=== PATIENT | male | born 1935 | race Caucasian/White ===

== ENCOUNTER → 2018-12-25 10:48 | Emergency (ER) | payer OTHER ==
[~2018-12-25] VITALS: Ht 172.7 cm; Wt 99.8 kg
[~2018-12-25 10:48] MED LIST: HYDROcodone-ACET 10/325MG TAB PO ONE; NEOMYCIN-BACITRACIN-POLYM 15GM TOP OINT TOP SCH; NEOMYCIN-BACITRACIN-POLYM UNITDOSE PKG TOP OINT TOP ONE; TETANUS-DIPTH-ACEL PERTUSSIS 0.5ML SYRG IM ONE; cefTRIAXone 1GM/50ML D5W 50 ML IV ONE
[2018-12-25 12:00] VITALS: BP 154/60
== END | disposition home or self-care (01) ==
LOC: ER 10:48 → EDBD 10:48
DX: S02.2XXA Fracture of nasal bones, initial encounter for closed fracture (principal); J44.9 Chronic obstructive pulmonary disease, unspecified; E11.9 Type 2 diabetes mellitus without complications; I10 Essential (primary) hypertension; Z95.1 Presence of aortocoronary bypass graft; W01.198A Fall on same level from slipping, tripping and stumbling with subsequent striking against other object, initial encounter; Y93.89 Activity, other specified; Y99.8 Other external cause status; Y92.89 Other specified places as the place of occurrence of the external cause
CPT/HCPCS: 70450; 70486; 90471; 90715; 93005; 96365; 99284; J0696

== ENCOUNTER 2020-10-04 07:18 | Emergency (ER) | payer OTHER ==
[~2020-10-04] VITALS: Ht 167.6 cm; Wt 95.3 kg
[2020-10-04 08:19] LABS: Basophils # (auto) 0 10 ^3/uL (0-0.2); Eosinophils # (auto) 0 10 ^3/uL (0-0.8); Lymphocytes % (auto) 24.2 % (10.0-50.0); Monocytes # (auto) 0.5 10 ^3/uL (0-1.3); White Blood Cell 4.2 10^3/uL (4.4-10.8)
[2020-10-04 08:23] LABS: Basophils % (auto) 0.9 % (0.0-2.0); Eosinophils % (auto) 0.3 % (0.0-7.0); Hematocrit 22.2 % (41.0-53.0); Hemoglobin 7.1 g/dL (13.5-17.5); Mean Corpuscular Hemoglobin 29.7 pg (28.0-32.0); Mean Corpuscular Hgb Conc. 32.2 g/dL (32.0-36.0); Mean Corpuscular Volume 92.3 fL (80.0-100.0); Monocytes % (auto) 11.3 % (0.0-12.0); Neutrophils # (auto) 2.6 10 ^3/uL (1.6-8.6); Neutrophils % (auto) 63.3 % (37.0-80.0); Nucleated Red Blood Cells % 0.2 %
[2020-10-04 08:24] LABS: Red Cell Distribution Width 21.2 % (11.8-14.3)
[2020-10-04 08:29] LABS: INR 1.89 (0.9-1.15)
[2020-10-04 08:35] LABS: Albumin 2.7 g/dL (3.4-5.0); Calcium 7.8 mg/dL (8.5-10.1); Potassium 4.3 mmol/L (3.5-5.1)
[2020-10-04 08:38] LABS: BUN/Creatinine Ratio 24.1; Total Protein 7.9 g/dL (6.4-8.2)
[2020-10-04 09:26] LABS: Urine Bacteria NONE SEEN /hpf (None Seen); Urine Blood 3+ /uL (Negative); Urine WBC 1122 /hpf (0 - 3)
[2020-10-04 09:35] LABS: Urine Specific Gravity 1.021 (1.001-1.035)
[2020-10-04] MEDS ORDERED: SODIUM CHLORIDE 0.9% 500 ML IVB ONE (10:30)
[2020-10-04] MEDS ORDERED: SODIUM CHLORIDE 0.9% 1,000 ML IV ONE (10:30)
[2020-10-04 10:48] LABS: Magnesium 2.2 mg/dL (1.6-2.6)
[2020-10-04] MEDS ORDERED: cefTRIAXone 1GM/50ML D5W 50 ML IV ONE (14:00)
[2020-10-04] MEDS ORDERED: FUROSEMIDE 40 MG/4 ML VIAL IV ONE (14:00)
[2020-10-04 17:20] VITALS: BP 173/77
[2020-10-04 17:50] VITALS: BP 171/75
[2020-10-04 20:31] VITALS: BP 170/60
[2020-10-04 21:38] LABS: Hematocrit 25.6 % (41.0-53.0); Hemoglobin 8.3 g/dL (13.5-17.5)
[2020-10-05 00:35] VITALS: BP 161/60
== END 2020-10-05 01:50 | disposition short-term general hospital (02) ==
LOC: ER 07:18 → EDBD 07:18 → ER 10-05 01:50
DX: D50.0 Iron deficiency anemia secondary to blood loss (chronic) (principal); E44.0 Moderate protein-calorie malnutrition; I48.20 Chronic atrial fibrillation, unspecified; N32.9 Bladder disorder, unspecified; K80.20 Calculus of gallbladder without cholecystitis without obstruction; R60.1 Generalized edema; I11.0 Hypertensive heart disease with heart failure; I50.9 Heart failure, unspecified; J44.9 Chronic obstructive pulmonary disease, unspecified; E11.9 Type 2 diabetes mellitus without complications; Z90.5 Acquired absence of kidney; Z68.33 Body mass index [BMI] 33.0-33.9, adult; Z86.73 Personal history of transient ischemic attack (TIA), and cerebral infarction without residual deficits
CPT/HCPCS: 36415; 36430; 71045; 74176; 80053; 81001; 82962; 83690; 83735; 85014; 85018; 85025; 85610; 86850; 86900; 86901; 86920; 87205; 93005; 96361; 96365; 96375; 99291; J0696; J1940; P9016; 87077; 87186

== ENCOUNTER 2020-10-10 12:30 | Inpatient (IN) | payer OTHER ==
[~2020-10-10] VITALS: Ht 177.8 cm; Wt 110.0 kg
[2020-10-10] MEDS ORDERED: SODIUM CHLORIDE 0.9% 1,000 ML IV ONE (12:45)
[2020-10-10] MEDS ORDERED: DEXTROSE 50% SYRINGE 50 ML IV ONE (13:11)
[2020-10-10] MEDS ORDERED: DEXTROSE 10% 1,000 ML IV ONE (13:15)
[2020-10-10] MEDS ORDERED: DEXTROSE (50%) 50ML SYRG IV ONE ×2 (13:30→15:45)
[2020-10-10 13:45] LABS: Basophils # (auto) 0 10 ^3/uL (0-0.2); Basophils % (auto) 0.7 % (0.0-2.0); Eosinophils # (auto) 0 10 ^3/uL (0-0.8); Eosinophils % (auto) 0.3 % (0.0-7.0); Hematocrit 24.5 % (41.0-53.0); Hemoglobin 8.1 g/dL (13.5-17.5); Lymphocytes # (auto) 0.6 10 ^3/uL (0.4-5.4); Lymphocytes % (auto) 14.7 % (10.0-50.0); Mean Corpuscular Hemoglobin 30.1 pg (28.0-32.0); Mean Corpuscular Hgb Conc. 33.3 g/dL (32.0-36.0); Mean Corpuscular Volume 90.5 fL (80.0-100.0); Monocytes # (auto) 0.5 10 ^3/uL (0-1.3); Monocytes % (auto) 12.5 % (0.0-12.0); Neutrophils # (auto) 2.9 10 ^3/uL (1.6-8.6); Neutrophils % (auto) 71.8 % (37.0-80.0); Nucleated Red Blood Cells % 0.1 %; Red Cell Distribution Width 20.7 % (11.8-14.3)
[2020-10-10 14:07] LABS: Chloride 107 mmol/L (98-107); Potassium 4.1 mmol/L (3.5-5.1); Sodium 137 mmol/L (136-145)
[2020-10-10 14:25] LABS: Alanine Aminotransferase 14 U/L (16-61); Albumin 2.5 g/dL (3.4-5.0); Alkaline Phosphatase 255 U/L (45-117); Anion Gap 4 (5-15); Aspartate Aminotransferase 40 U/L (15-37); BUN/Creatinine Ratio 26.2; Bilirubin, Total 0.9 mg/dL (0.2-1.0); Blood Urea Nitrogen 49 mg/dL (7-18); Calcium 7.8 mg/dL (8.5-10.1); Carbon Dioxide 26 mmol/L (21-32); GFR African American 44 mL/min; GFR Non-African American 37 mL/min; Glucose 120 mg/dL (74-106); Total Protein 7.3 g/dL (6.4-8.2)
[2020-10-10] MEDS ORDERED: cefTRIAXone 1GM/50ML D5W 50 ML IV ONE (15:45)
[2020-10-10] MEDS ORDERED: CLINDAMYCIN 600MG IV 50 ML IV ONE (15:45)
[2020-10-10] MEDS ORDERED: DOCUSATE SOD 100 MG CAP PO PRN (16:30)
[2020-10-10] MEDS ORDERED: NITROGLYCERIN 0.4 MG SL TAB SL PRN (16:30)
[2020-10-10] MEDS ORDERED: GLUCAGON HYDROCHLORIDE (RDNA) 1 MG VIAL IM ONE (16:30)
[2020-10-10] MEDS ORDERED: MORPHINE SULFATE INJECTION 2 MG/ML SYRG IV PRN (16:30)
[2020-10-10] MEDS ORDERED: ONDANSETRON HCL 4 MG/2 ML VIAL IV PRN (16:30)
[2020-10-10] MEDS ORDERED: ACETAMINOPHEN 500 MG TAB PO PRN (16:30)
[2020-10-10] MEDS ORDERED: ALBUTEROL SULF 2.5 MG/0.5ML(0.5%) NEB SOLN ONE (16:38)
[2020-10-10] MEDS ORDERED: IPRATROPIUM BROM 0.5 MG/2.5ML INH SOL ONE (16:38)
[2020-10-10 17:06] LABS: Urine Bacteria FEW /hpf (None Seen); Urine Blood 3+ /uL (Negative); Urine Specific Gravity 1.015 (1.001-1.035); Urine WBC 66 /hpf (0 - 3)
[2020-10-10] MEDS: ACCU-CHEK COMFORT CURVE STRIP VI SCH ×2 (19:15→22:58)
[2020-10-10] MEDS: LACTULOSE 20Gm/30ML SOLN PO SCH ×2 (19:15→23:01)
[2020-10-10 19:45] VITALS: BP 159/76
[2020-10-10] MEDS: CLINDAMYCIN 300MG IV 50 ML IV SCH (22:00)
[2020-10-11] MEDS: LACTULOSE 20Gm/30ML SOLN PO SCH ×2 (02:00→06:45)
[2020-10-11] MEDS: ACCU-CHEK COMFORT CURVE STRIP VI SCH ×6 (02:14→20:42)
[2020-10-11] MEDS: CLINDAMYCIN 300MG IV 50 ML IV SCH ×3 (06:45→20:42)
[2020-10-11 08:56] LABS: Basophils # (auto) 0 10 ^3/uL (0-0.2); Basophils % (auto) 1.1 % (0.0-2.0); Eosinophils # (auto) 0 10 ^3/uL (0-0.8); Eosinophils % (auto) 0.3 % (0.0-7.0); Hematocrit 26.7 % (41.0-53.0); Hemoglobin 8.7 g/dL (13.5-17.5); Lymphocytes % (auto) 22.1 % (10.0-50.0); Mean Corpuscular Hemoglobin 29.7 pg (28.0-32.0); Mean Corpuscular Hgb Conc. 32.6 g/dL (32.0-36.0); Monocytes # (auto) 0.5 10 ^3/uL (0-1.3); Monocytes % (auto) 10.6 % (0.0-12.0); Neutrophils # (auto) 2.9 10 ^3/uL (1.6-8.6); Neutrophils % (auto) 65.9 % (37.0-80.0); Red Blood Cells 2.94 10^6/uL (4.5-5.90); White Blood Cell 4.3 10^3/uL (4.4-10.8)
[2020-10-11 09:13] LABS: Albumin 2.7 g/dL (3.4-5.0); Potassium 4.7 mmol/L (3.5-5.1)
[2020-10-11 09:14] LABS: INR 1.11 (0.9-1.15); Partial Thromboplastin Time 31.2 sec (23.0-31.2)
[2020-10-11 09:17] LABS: BUN/Creatinine Ratio 24.6; Bilirubin, Total 0.8 mg/dL (0.2-1.0); Total Protein 8.1 g/dL (6.4-8.2)
[2020-10-11] MEDS ORDERED: hydrALAZINE HCL 20 MG/ML VL IV PRN (09:30)
[2020-10-11] MEDS: cefTRIAXone 1GM/50ML D5W 50 ML IV SCH (09:36)
[2020-10-11] MEDS ORDERED: FUROSEMIDE 20 MG/2 ML VIAL IV SCH (10:00)
[2020-10-11] MEDS: CARVEDILOL 3.125 MG TAB PO SCH ×2 (10:17→20:42)
[2020-10-11] MEDS: FUROSEMIDE 20 MG TAB PO SCH (10:17)
[2020-10-11] MEDS: ENOXAPARIN SOD 40 MG/0.4 ML SYRINGE SC SCH (10:18)
[2020-10-11] MEDS ORDERED: GLIP10TA9 PO (12:02)
[2020-10-11] MEDS ORDERED: TROS20TA3 PO (12:02)
[2020-10-11] MEDS ORDERED: TAMS0.4C36 PO (12:02)
[2020-10-11] MEDS ORDERED: AMLO-489 PO (12:02)
[2020-10-11] MEDS ORDERED: METO25TA5 PO (12:02)
[2020-10-11] MEDS ORDERED: FUR20T PO (12:02)
[2020-10-11] MEDS ORDERED: CICL160A2 PO (12:02)
[2020-10-11] MEDS ORDERED: EPOE20005 INJ (12:03)
[2020-10-11] MEDS ORDERED: ATOR-47 PO (12:03)
[2020-10-11] MEDS ORDERED: ACET-1156 PO (12:03)
[2020-10-11] MEDS ORDERED: VENL37.588 PO (12:03)
[2020-10-11] MEDS ORDERED: CAL025T PO (12:03)
[2020-10-11] MEDS ORDERED: INSUINJ2 SC (12:03)
[2020-10-11] MEDS ORDERED: DOCU-94 PO (12:03)
[2020-10-11] MEDS ORDERED: CALC0.25 PO (12:03)
[2020-10-11] MEDS ORDERED: LABETALOL HCL 5 MG/ML 4ML SYRINGE IV PRN (18:45)
[2020-10-11 20:00] VITALS: BP 153/80
[2020-10-11 21:56] VITALS: BP 153/80
[2020-10-12] MEDS: ACCU-CHEK COMFORT CURVE STRIP VI SCH ×6 (01:23→22:12)
[2020-10-12] MEDS: HYDROcodone-ACET 5/325MG TAB PO PRN (04:20)
[2020-10-12 05:06] VITALS: BP 157/85
[2020-10-12] MEDS: CLINDAMYCIN 300MG IV 50 ML IV SCH ×3 (05:40→22:10)
[2020-10-12 09:00] VITALS: BP 179/71
[2020-10-12] MEDS: ENOXAPARIN SOD 40 MG/0.4 ML SYRINGE SC SCH (09:24)
[2020-10-12] MEDS ORDERED: KETOROLAC TROMETH 30 MG/ML 1ML VIAL IV ONE (09:30)
[2020-10-12] MEDS: cefTRIAXone 1GM/50ML D5W 50 ML IV SCH (10:03)
[2020-10-12] MEDS: CARVEDILOL 3.125 MG TAB PO SCH ×2 (10:04→22:11)
[2020-10-12] MEDS: FUROSEMIDE 20 MG TAB PO SCH (10:04)
[2020-10-12] MEDS ORDERED: METOPROLOL TARTRATE 50 MG TAB PO ONE (10:30)
[2020-10-12] MEDS ORDERED: amLODIPine BESYLATE 5 MG TAB PO ONE (10:30)
[2020-10-12 11:00] VITALS: BP 163/76
[2020-10-12 12:00] VITALS: BP 146/69
[2020-10-12] MEDS: HYDROmorphone HCL 2 MG/ML VL IV PRN ×2 (14:22→22:19)
[2020-10-12 16:42] VITALS: BP 113/56
[2020-10-12 22:08] VITALS: BP 125/58
[2020-10-12] MEDS: METOPROLOL TARTRATE 50 MG TAB PO SCH (22:11)
[2020-10-13] MEDS: ACCU-CHEK COMFORT CURVE STRIP VI SCH ×6 (02:00→22:30)
[2020-10-13 05:00] VITALS: BP 141/76
[2020-10-13] MEDS: CLINDAMYCIN 300MG IV 50 ML IV SCH ×3 (05:44→22:29)
[2020-10-13] MEDS: ALBUTEROL SULF 2.5 MG/0.5ML(0.5%) NEB SOLN NEB PRN (06:29)
[2020-10-13] MEDS: IPRATROPIUM BROM 0.5 MG/2.5ML INH SOL NEB PRN (06:30)
[2020-10-13 08:36] VITALS: BP 122/64
[2020-10-13] MEDS: CARVEDILOL 3.125 MG TAB PO SCH ×2 (09:52→22:30)
[2020-10-13] MEDS: cefTRIAXone 1GM/50ML D5W 50 ML IV SCH (09:52)
[2020-10-13] MEDS: FUROSEMIDE 20 MG TAB PO SCH (09:53)
[2020-10-13] MEDS: METOPROLOL TARTRATE 50 MG TAB PO SCH ×2 (09:54→22:30)
[2020-10-13] MEDS: amLODIPine BESYLATE 5 MG TAB PO SCH (09:54)
[2020-10-13 12:35] VITALS: BP 112/55
[2020-10-13 16:47] VITALS: BP 121/65
[2020-10-13 19:38] VITALS: BP 121/65
[2020-10-13 21:33] VITALS: BP 130/64
[2020-10-14] MEDS: ACCU-CHEK COMFORT CURVE STRIP VI SCH ×6 (02:13→22:47)
[2020-10-14 05:30] VITALS: BP 125/55
[2020-10-14] MEDS: CLINDAMYCIN 300MG IV 50 ML IV SCH ×3 (05:53→22:45)
[2020-10-14] MEDS: ALBUTEROL SULF 2.5 MG/0.5ML(0.5%) NEB SOLN NEB PRN ×2 (07:55→14:24)
[2020-10-14] MEDS: IPRATROPIUM BROM 0.5 MG/2.5ML INH SOL NEB PRN ×2 (07:55→14:24)
[2020-10-14 09:00] VITALS: BP 138/52
[2020-10-14] MEDS: cefTRIAXone 1GM/50ML D5W 50 ML IV SCH (09:30)
[2020-10-14] MEDS: CARVEDILOL 3.125 MG TAB PO SCH ×2 (10:09→22:47)
[2020-10-14] MEDS: FUROSEMIDE 20 MG TAB PO SCH (10:09)
[2020-10-14] MEDS: METOPROLOL TARTRATE 50 MG TAB PO SCH ×2 (10:10→22:47)
[2020-10-14] MEDS: amLODIPine BESYLATE 5 MG TAB PO SCH (10:10)
[2020-10-14 10:23] LABS: Basophils # (auto) 0.1 10 ^3/uL (0-0.2); Eosinophils # (auto) 0 10 ^3/uL (0-0.8); Hematocrit 24.7 % (41.0-53.0); Mean Corpuscular Hgb Conc. 32.4 g/dL (32.0-36.0); Monocytes # (auto) 0.8 10 ^3/uL (0-1.3); Neutrophils # (auto) 3.4 10 ^3/uL (1.6-8.6); White Blood Cell 5.7 10^3/uL (4.4-10.8)
[2020-10-14 10:24] LABS: Basophils % (auto) 1.3 % (0.0-2.0); Eosinophils % (auto) 0.1 % (0.0-7.0); Lymphocytes # (auto) 1.5 10 ^3/uL (0.4-5.4); Lymphocytes % (auto) 25.4 % (10.0-50.0); Mean Corpuscular Hemoglobin 29.7 pg (28.0-32.0); Mean Corpuscular Volume 91.9 fL (80.0-100.0); Monocytes % (auto) 13.7 % (0.0-12.0); Neutrophils % (auto) 59.5 % (37.0-80.0); Nucleated Red Blood Cells % 0.2 %; Red Blood Cells 2.69 10^6/uL (4.5-5.90)
[2020-10-14 10:34] LABS: Red Cell Distribution Width 21.5 % (11.8-14.3)
[2020-10-14 10:44] LABS: Albumin 2.4 g/dL (3.4-5.0); Calcium 7.5 mg/dL (8.5-10.1)
[2020-10-14 10:48] LABS: BUN/Creatinine Ratio 27.8; Bilirubin, Total 0.7 mg/dL (0.2-1.0); Total Protein 7.5 g/dL (6.4-8.2)
[2020-10-14 10:54] LABS: Potassium 5.6 mmol/L (3.5-5.1)
[2020-10-14] MEDS ORDERED: FUROSEMIDE 20 MG/2 ML VIAL IV ONE (11:15)
[2020-10-14] MEDS ORDERED: DEXTROSE (50%) 50ML SYRG IV ONE (11:15)
[2020-10-14] MEDS ORDERED: CALCIUM GLUC 1,000mg/50ml-NS 50 ML IV ONE (11:15)
[2020-10-14] MEDS ORDERED: SODIUM BICARBONATE 8.4 % INJ 50ML VIAL IV ONE (11:15)
[2020-10-14] MEDS ORDERED: InsuLIN REG 1unit/0.01ml Soln (100units/ml) IV ONE (11:15)
[2020-10-14 12:31] VITALS: BP 129/69
[2020-10-14 14:21] LABS: Basophils # (auto) 0.1 10 ^3/uL (0-0.2); Eosinophils # (auto) 0 10 ^3/uL (0-0.8); Eosinophils % (auto) 0.2 % (0.0-7.0); Monocytes # (auto) 0.8 10 ^3/uL (0-1.3); Neutrophils % (auto) 57.8 % (37.0-80.0); White Blood Cell 5.8 10^3/uL (4.4-10.8)
[2020-10-14 14:24] LABS: Basophils % (auto) 1.1 % (0.0-2.0); Hematocrit 24.5 % (41.0-53.0); Lymphocytes # (auto) 1.6 10 ^3/uL (0.4-5.4); Mean Corpuscular Hemoglobin 30.1 pg (28.0-32.0); Mean Corpuscular Hgb Conc. 32.8 g/dL (32.0-36.0); Mean Corpuscular Volume 91.9 fL (80.0-100.0); Monocytes % (auto) 13.9 % (0.0-12.0); Neutrophils # (auto) 3.4 10 ^3/uL (1.6-8.6); Nucleated Red Blood Cells % 0.2 %; Red Blood Cells 2.67 10^6/uL (4.5-5.90)
[2020-10-14 14:25] LABS: Red Cell Distribution Width 20.9 % (11.8-14.3)
[2020-10-14 15:04] LABS: Potassium 5.3 mmol/L (3.5-5.1)
[2020-10-14 15:08] LABS: BUN/Creatinine Ratio 28.2; Calcium 7.8 mg/dL (8.5-10.1)
[2020-10-14 16:54] VITALS: BP 134/60
[2020-10-14] MEDS: HYDROcodone-ACET 5/325MG TAB PO PRN (20:43)
[2020-10-14 22:07] VITALS: BP 146/60
== END 2020-10-15 02:15 | disposition short-term general hospital (02) | DRG 871 ==
LOC: EDBD 12:30 → ER 12:30 → TELE 16:18 → TELE-EAST 10-11 19:08
PROVIDERS: ADMIT Nurse Practitioner Acute Care; ATTEND Family Medicine
DX: A41.9 Sepsis, unspecified organism (principal); G93.41 Metabolic encephalopathy; I50.23 Acute on chronic systolic (congestive) heart failure; R18.8 Other ascites; L03.115 Cellulitis of right lower limb; L03.116 Cellulitis of left lower limb; I13.0 Hypertensive heart and chronic kidney disease with heart failure and stage 1 through stage 4 chronic kidney disease, or unspecified chronic kidney disease; N39.0 Urinary tract infection, site not specified; E11.649 Type 2 diabetes mellitus with hypoglycemia without coma; D63.8 Anemia in other chronic diseases classified elsewhere; N40.0 Benign prostatic hyperplasia without lower urinary tract symptoms; Z20.822 Contact with and (suspected) exposure to COVID-19; E66.9 Obesity, unspecified; N18.32 Chronic kidney disease, stage 3b; E11.22 Type 2 diabetes mellitus with diabetic chronic kidney disease; E78.5 Hyperlipidemia, unspecified; J44.9 Chronic obstructive pulmonary disease, unspecified; Z86.73 Personal history of transient ischemic attack (TIA), and cerebral infarction without residual deficits; Z90.5 Acquired absence of kidney; Z95.1 Presence of aortocoronary bypass graft; Z68.30 Body mass index [BMI] 30.0-30.9, adult
CPT/HCPCS: 36415; 36600; 70450; 71045; 74176; 76705; 80048; 80053; 81001; 82140; 82805; 82962; 83605; 84443; 84484; 85025; 85610; 85730; 87040; 87081; 87086; 87426; 93005; 94640; 96361; 96374; 96376; 99291; G0378; J0696; J1815; J1885; J2405; J3490